=== PATIENT | female | born 1935 | race Caucasian/White ===

== ENCOUNTER → 2018-07-11 | Outpatient (CLI) | payer MEDICARE, OTHER ==
[2018-07-11] VITALS (8 sets, daily range): BP systolic 103–155; BP diastolic 23–72
[~2018-07-11] MED LIST: ACETAMINOPHEN 325 MG TABLET PO ONE; ACETAMINOPHEN 500 MG TABLET PO ONE; ANTI-COAG MONITOR BY PHARMACY. MC PRN; APIX2.5T PO; APIXABAN 2.5 MG TABLET PO SCH; ASPI-630 PO; ASPIRIN 81 MG TAB.CHEW PO SCH; CARV25TA2 PO; CARVEDILOL 12.5 MG TABLET PO SCH; CETIRIZINE HCL 10 MG TABLET PO SCH; CHOL10003 PO; CHOLECALCIFEROL (VITAMIN D3) 1,000 UNIT TABLET PO SCH; CYAN10005 PO; CYANOCOBALAMIN (VITAMIN B-12) 1,000 MCG TABLET. PO SCH; FEXO180T16 PO; LEVO50TA5 PO; LEVOTHYROXINE 50 MCG TABLET PO SCH; LISI10TA2 PO; LISINOPRIL 10 MG TABLET PO SCH; MAGN400T3 PO; MAGNESIUM OXIDE 400 MG TABLET PO SCH; MULT1TAB52 PO; MULTIVITAMIN with MINERAL TABLET. PO SCH; OXYC5TAB4 PO; PANT40TA3 PO; PANTOPRAZOLE 40 MG TABLET. PO SCH; POLY255P11 PO; POLYETHYLENE GLYCOL 3350 17 GM PACKET. PO SCH; PRAM0.255 PO; PRAMIPEXOLE 0.25 MG TABLET. PO SCH; UBID50CA25 PO; UBIDECARENONE 50 MG CAPSULE. PO SCH; diphenhydrAMINE HCL 25 MG CAPSULE PO ONE; oxyCODONE IR 5 MG TABLET PO PRN
[2018-07-11 17:22] LABS: BASO % 1 % (0-3); EOS # 0.1 x10^3/uL (0.0-0.7); EOS % 1 % (0-3); HEMATOCRIT 22.7 % (36.0-47.0); HEMOGLOBIN 7.8 g/dL (12.0-15.5); LYMPH # 0.9 x10^3/uL (1.0-4.8); LYMPH % 13 % (24-48); MEAN CORPUSCULAR HEMOGLOBIN 32 pg (25-35); MEAN CORPUSCULAR HGB CONC 34 g/dL (31-37); MEAN CORPUSCULAR VOLUME 94 fL (79-100); MONO # 0.6 x10^3/uL (0.0-1.1); MONO % 9 % (0-9); NEUT # 5.5 x10^3uL (1.8-7.7); NEUT % 77 % (31-73); PLATELET COUNT 243 x10^3/uL (140-400); RED BLOOD COUNT 2.41 x10^6/uL (3.50-5.40); RED CELL DISTRIBUTION WIDTH 13.7 % (11.5-14.5); WHITE BLOOD COUNT 7.2 x10^3/uL (4.0-11.0)
[2018-07-11] MEDS: CYCLOBENZAPRINE 10 MG TABLET. PO PRN (23:11)
[2018-07-12 00:42] VITALS: BP 105/56
[2018-07-12 06:27] LABS: BASO % 0 % (0-3); EOS # 0.1 x10^3/uL (0.0-0.7); EOS % 1 % (0-3); HEMOGLOBIN 8.2 g/dL (12.0-15.5); LYMPH # 0.7 x10^3/uL (1.0-4.8); LYMPH % 12 % (24-48); MEAN CORPUSCULAR HEMOGLOBIN 32 pg (25-35); MEAN CORPUSCULAR HGB CONC 34 g/dL (31-37); MEAN CORPUSCULAR VOLUME 93 fL (79-100); MONO # 0.5 x10^3/uL (0.0-1.1); MONO % 9 % (0-9); NEUT # 4.6 x10^3uL (1.8-7.7); NEUT % 78 % (31-73); PLATELET COUNT 233 x10^3/uL (140-400); RED BLOOD COUNT 2.59 x10^6/uL (3.50-5.40); RED CELL DISTRIBUTION WIDTH 14.2 % (11.5-14.5); WHITE BLOOD COUNT 5.9 x10^3/uL (4.0-11.0)
[2018-07-12 06:29] VITALS: BP 124/72
[2018-07-12 06:35] LABS: ALBUMIN 2.3 g/dL (3.4-5.0); ALBUMIN/GLOBULIN RATIO 0.7 (1.0-1.7); CALCIUM 7.6 mg/dL (8.5-10.1); CREATININE 0.6 mg/dL (0.6-1.0); GFR 95.5; TOTAL BILIRUBIN 0.7 mg/dL (0.2-1.0); TOTAL PROTEIN 5.5 g/dL (6.4-8.2)
[2018-07-12] MEDS: CYCLOBENZAPRINE 10 MG TABLET. PO PRN (08:44)
== END ==
LOC: UNDOADMOB 16:57 → OPINF 16:57 → 1 SOUTH 16:57 → UNDODISOB 07-12 08:45 → EDSTATUS 07-20 14:37
PROVIDERS: ATTEND Internal Medicine
DX: D64.9 Anemia, unspecified (principal)
CPT/HCPCS: 36415; 36430; 36592; 85025; 86850; 86900; 86901; 86920; P9016; Q0163; 80053; G0378; G0379